=== PATIENT | male | born 1955 | race Caucasian/White ===

== ENCOUNTER 2019-07-28 17:51 | Observation (INO) ==
[2019-07-28] MEDS ORDERED: ASPIRIN PO ONE (18:07)
--- NOTE | 2019-07-28 18:29 | Diag Imaging Result Doc PS360 ---
CHEST-2 VIEWS - 07/28/2019 INDICATION: Near Syncope COMPARISON: 10/26/2012 FINDINGS: The lungs are normally expanded and clear. Heart size and mediastinal contours are normal. No pneumothorax or pleural effusion. IMPRESSION: Negative exam. Electronically signed by Chaz Howe 07/28/2019 6:27 PM
--- NOTE | 2019-07-28 19:12 | PROVIDER DOCUMENTATION ---
HPI-General Adult - General Chief Complaint: Near Syncope Stated Complaint: DIZZY Time Seen by Provider: 07/28/19 18:43 Source: patient, family Allergies/Adverse Reactions: Patient Allergies Allergy/AdvReac Type Severity Reaction Status Date / Time No Known Allergies Allergy Verified 07/28/19 20:02 Home Medications: Home Medication List Medication Instructions Recorded Confirmed Last Taken Type Alfuzosin E.r. [Uroxatral] 1 tab PO DAILY 07/28/19 07/28/19 Unknown History Bisoprolol [Zebeta] 5 mg PO DAILY 07/28/19 07/28/19 07/28/19 History Oxybutynin Chloride [Oxybutynin 1 tab PO DAILY 07/28/19 07/28/19 07/28/19 History Chloride ER] Potassium 1 tab PO DAILY 07/28/19 07/28/19 07/28/19 History - History of Present Illness -Gen Adult Nature of Presenting Problems: 63yo male presents with CC of dizziness. The onset was 3:30pm. The patient reports that the symptoms started suddenly and he felt warm. The patient denies chest pain, SOB, or any speech issues. The patient did have have upper back pain last and some shortness of breath. The patient did not pass out, but he did have some difficulty walking. The patient denies focal weakness, but does report some generalized LE weakness and pain. The patient denies cough or fever. The symptoms last approximately 30min. Review of Systems - Adult - REVIEW OF SYSTEMS - ADULT Constitutional: reports: no symptoms reported. denies: fever Eyes: reports: no symptoms reported. denies: blurred vision Ears, Nose, Mouth & Throat: reports: no symptoms reported. denies: throat pain Cardiovascular: reports: no symptoms reported. denies: chest pain Respiratory: reports: no symptoms reported. denies: shortness of breath Gastrointestinal: reports: no symptoms reported. denies: abdominal pain Genitourinary: reports: no symptoms reported. denies: flank pain Musculoskeletal: reports: back pain Integumentary: reports: no symptoms reported Neurological: reports: ataxia, loss of balance. denies: slurred speech Psychiatric: reports: no symptoms reported Endocrine: reports: no symptoms reported Hematologic/Lymphatic: reports: no symptoms reported Allergic/Immunologic: reports: no symptoms reported Past History - Adult - PAST MEDICAL HISTORY-ADULT Review of Records: reports: Old Records Reviewed Cardiovascular: reports: HTN Respiratory: reports: denies history Gastrointestinal: reports: denies history Genitourinary: reports: denies history Musculoskeletal: reports: denies history Neurological: reports: denies history. denies: CVA Psychiatric: reports: denies history Endocrine/Immune: reports: denies history - FAMILY HISTORY Family History: other (CAD) - SOCIAL HISTORY Smoking: other (Former smoker) Substance Use: none/never Alcohol Use Frequency: never Physical Exam-General - PHYSICAL EXAM-ADULT Initial Vital Signs Reviewed: Yes - CONSTITUTIONAL General Appearance: appears well, alert, no apparent distress - EYES Eyes: PERRL/EOMI. negative: conjuctival exudate, EOM palsy, photophobia, scleral icterus - HEAD, EARS, NOSE, MOUTH & THROAT HENMT: normocephalic/atraumatic, moist mucous membranes, pharynx normal - NECK Neck: non-tender - RESPIRATORY Respiratory: lungs clear, normal breath sounds - CARDIOVASCULAR Cardiovascular: regular rate, rhythm. negative: no edema (Trace LE edema) - GASTROINTESTINAL (ABDOMEN) Abdominal Exam: non tender, soft - SKIN Integumentary: normal color, warm/dry - NEUROLOGIC Neurologic: camp nurse II-XII nml as tested, other (normal finger to nose and heel to chen testing). negative: no motor/sensory deficits, abnormal cerebellar tests, abnormal camp nurse II-XII, aphasia, motor weakness, sensory deficit - PSYCHIATRIC Psych/Mental Status: normal mood/affect, normal thought content, normal thought process Progress - PLAN OF CARE/RESULTS Progress/Plan/Lab Results: Vital Signs - 8 hr 07/28/19 17:57 Temperature 97.9 F Pulse Rate 58 L Respiratory Rate 19 Blood Pressure 157/97 O2 Sat by Pulse Oximetry 96 Orders Category Date Time Status Cardiac Monitoring DIRECTED Care 07/28/19 18:08 Active Oxygen Therapy- ED Nursing DIRECTED Care 07/28/19 18:08 Active Saline Loc NOW Care 07/28/19 18:08 Active CHEST-2 VIEWS [RAD] Stat Exams 07/28/19 18:[address] HEAD W/O CONTRAST [CT] Stat Exams 07/28/19 19:09 Ordered CBC WITH ELECTRONIC DIFF [HEME] Stat Lab 07/28/19 19:03 Ordered CK PROFILE [SP CHEM] Stat Lab 07/28/19 19:03 Ordered COMPREHENSIVE METABOLIC PANEL [CHEM] Stat Lab 07/28/19 19:03 Ordered PRO B-NATRIURETIC PEPTIDE Stat Lab 07/28/19 19:03 Ordered PROTIME WITH INR [COAG] Stat Lab 07/28/19 19:03 Ordered PTT [COAG] Stat Lab 07/28/19 19:03 Ordered TROPONIN T Stat Lab 07/28/19 19:03 Ordered Aspirin Med 07/28/19 18:07 Discontinued 325 mg PO NOW ONE CP/SOB/Palp >45 yrs of Age Stat Oth 07/28/19 18:07 Ordered EKG [EKG] Stat Ther 07/28/19 18:08 Ordered Result Diagrams: 07/28/19 19:02 07/28/19 19:02 - REASSESSMENT Reassessment #1 Status: improving (Given bradycardia and symptoms will admit for symptomatic bradycardia and observation. Discussed with the hospitalist team who has accepted the patient.) Departure - Departure Date of Disposition Decision: 07/28/19 Time of Disposition Decision: 20:24 DIAGNOSIS: Symptomatic bradycardia Disposition: ADMITTED INPATIENT 09 Certified Medical Emergency: Emergent Condition: Fair Referrals and Follow-Ups: Tony Rock MD [Primary Care Provider] - - Critical Care Note This patient required my direct & personal management of CC.: No Attestation - Physician/ TONY Attestation Patient care was provided by Advanced Practice Provider:: No The physician spent face to face time with patient:: Yes Advanced Practice Provider documentation review:: Supervising physician onsite and consulted in the evaluation and care of this patient. The physician did have a face to face encounter with the patient.
[2019-07-28 19:19] LABS: BASO# 0.03 X1000 (0.0-0.2); BASO% 0.3 % (0.0-0.8); EOS# 0.39 X1000 (0.0-0.7); EOS% 4.3 % (0.0-10.0); HEMATOCRIT 41.6 % (42.0-52.0); HEMOGLOBIN 13.9 g/dL (14.0-18.0); LYMPH# 2.23 X1000 (1.2-3.4); LYMPH% 24.3 % (20.5-51.1); MCH 28.7 PG (27-31); MCHC 33.4 g/dL (33-37); MONO# 0.92 X1000 (0.11-0.59); MPV 10.3 FL (7.4-10.4); NEUT# 5.59 X1000 (1.4-6.5); NEUT% 61.1 % (42.2-75.2); PLT 156 X1000 (130-400); RBC 4.84 XMIL (4.7-6.1); WBC 9.16 X1000 (4.8-10.8)
[2019-07-28 19:21] LABS: INR 1.14; PROTIME 14.8 Seconds (11.0-16.0)
[2019-07-28 19:22] LABS: PTT 29.5 Seconds (22.3-41.8)
--- NOTE | 2019-07-28 19:34 | Diag Imaging Result Doc PS360 ---
CT HEAD W/O CONTRAST - 07/28/2019 INDICATION: Dizziness COMPARISON: 08/25/2013 FINDINGS: The ventricles and sulci are normal in size and contour. No intracranial mass or hemorrhage. The skull is intact. The sinuses mastoids and middle ears are clear. IMPRESSION: Negative exam. This exam was performed using automated exposure control, adjustment of mA or kV according to patient size, and/or use of iterative reconstruction technique Electronically signed by Chaz Howe 07/28/2019 7:31 PM
[2019-07-28 19:38] LABS: AGAP 11; ALB/GLOB RATIO 1.9; ALKALINE PHOSPHATASE 80 U/L (32-122); BUN 16 mg/dL (8-22); CHLORIDE 104 mmol/L (98-107); CK PROFILE 149 U/L (24-204); COSMO 279; CREATININE 0.8 mg/dL (0.7-1.2); ESTIMATED GFR > 60; GLUCOSE 137 mg/dL (70-104); GOT 25 U/L (10-34); GPT 30 U/L (10-44); POTASSIUM 3.7 mmol/L (3.5-5.1); SODIUM 138 mmol/L (136-145); TCO2 23 mmol/L (25-35); TOTAL BILIRUBIN 0.33 mg/dL (0.20-1.00); TOTAL PROTEIN 6.1 g/dL (6.3-8.3)
--- NOTE | 2019-07-28 19:47 | EKG Report ---
Test Performed on : 07/28/2019 6:52:09 PM Test Reason : Near Syncope Blood Pressure : / mmHG Vent. Rate : 055 BPM Atrial Rate : 055 BPM P-R Int : 182 ms QRS Dur : 092 ms QT Int : 426 ms P-R-T Axes : 044 -06 -01 degrees QTc Int : 407 ms Sinus bradycardia. Otherwise normal ECG No previous ECGs available Unconfirmed Result
[2019-07-28] MEDS ORDERED: ZOFRAN IV PRN (21:11)
[2019-07-28] MEDS: NS 1,000 ML IV SCH (23:55)
[2019-07-28] MEDS: TYLENOL PO PRN (23:57)
--- NOTE | 2019-07-29 00:41 | HISTORY AND PHYSICAL ---
CHIEF COMPLAINT: Syncope. HISTORY OF PRESENT ILLNESS: The patient is a very pleasant 63-year-old male who notes he has had dizziness off and on, but never anything this severe. States that he does not drink enough and he notes that he stays dehydrated. He has been working heavily over the past couple of weeks, 12-16 hour days. He was at work today when he became lightheaded, dizzy, felt faint, knew that he needed to sit down. He was able to call his boss. Upon his boss' arrival to get him, which was just few minutes later, Mr. Healy notes that he was somewhat disoriented. He was unable to figure out where to grab the hand rail. He also states that he had called someone else, but he could not figure out how to talk to them. Denied any focal weakness. Notes that the confusion quickly relieved itself. Notes that a couple days ago he did have some upper back pain, but this went away. Notes he did not pass out, did not have any focal weakness, but states he was just generally weak. Noted the symptoms lasted approximately 30 to 40 minutes. ALLERGIES: No known drug allergies. MEDICATIONS: Uroxatral, Zebeta 5 mg daily, oxybutynin ER 1 tablet daily, potassium. PAST MEDICAL HISTORY: Significant for hypertension, BPH, overactive bladder with frequent urinary incontinence and this is the reason he states he does not drink well. FAMILY HISTORY: Positive for coronary artery disease. SOCIAL HISTORY: He is a former smoker, but has not smoked in several years. Denies alcohol or illicit substances. He is currently employed, works greater than 40 hours a week. REVIEW OF SYSTEMS: As noted above. Denies any headaches, blurred vision. Denies any change in his vision except during the episode of dizziness. Denies any difficulty walking, talking or thinking except during this single episode of dizziness. All this seems to have cleared up at the moment. Denies any dysuria, but does note that he has urinary frequency. Denies constipation, melena, hematochezia. Denies chest pain, palpitations, shortness of breath, cough, congestion or other upper respiratory type symptoms. Does have frequent swelling in his lower extremities, but this has not really changed. PHYSICAL EXAMINATION: VITAL SIGNS: Reviewed. Temperature 97.9 degrees, pulse 58, respiratory 19, BP 157/97, saturating 96% on room air. GENERAL: Patient is very pleasant. He is in no current respiratory distress. He is sitting in the bed with the head elevated. He is awake, alert, oriented. He denies any dizziness currently. HEENT: Normocephalic. NECK: Supple. CARDIOVASCULAR: Bradycardia. No current murmurs. CHEST: Clear and nonlabored. No wheezing. ABDOMEN: Soft, nondistended, nontender. EXTREMITIES: Moves all extremities. NEUROLOGIC: No focal neurological changes. LABORATORIES: CBC, CMP effectively normal with a glucose at 137. ASSESSMENT: 1. Bradycardia. 2. Syncope. 3. Hypertension. 4. Dizziness. 5. Volume depletion. PLAN: Going to admit patient to the hospital, place him on IV fluids, telemetry, recheck his labs in the a.m. and we will follow. Discussed with patient the importance of staying well hydrated as well as taking breaks at work when necessary. He certainly should consider following up outpatient with Urology regarding his urinary incontinence issues. cc: MD Tony Guidry MD
[2019-07-29] MEDS: NS 1,000 ML IV SCH ×2 (06:08→10:54)
[2019-07-29 08:14] LABS: HEMATOCRIT 41.5 % (42.0-52.0); HEMOGLOBIN 13.9 g/dL (14.0-18.0); MCH 29.6 PG (27-31); MCHC 33.5 g/dL (33-37); MCV 88.3 FL (81-99); MPV 10.7 FL (7.4-10.4); RBC 4.7 XMIL (4.7-6.1); RDW 13.4 % (11.5-14.5); WBC 8.17 X1000 (4.8-10.8)
[2019-07-29 08:45] LABS: AGAP 10; ALKALINE PHOSPHATASE 75 U/L (32-122); BUN 12 mg/dL (8-22); CALCIUM 8.4 mg/dL (8.8-10.2); CHLORIDE 105 mmol/L (98-107); COSMO 282; CREATININE 0.9 mg/dL (0.7-1.2); ESTIMATED GFR > 60; GLUCOSE 117 mg/dL (70-104); GOT 26 U/L (10-34); GPT 29 U/L (10-44); POTASSIUM 3.6 mmol/L (3.5-5.1); SODIUM 141 mmol/L (136-145); TCO2 26 mmol/L (25-35); TOTAL BILIRUBIN 0.92 mg/dL (0.20-1.00)
--- NOTE | 2019-07-29 09:47 | PROGRESS NOTE ---
DATE: 07/29/2019 SUBJECTIVE: The patient is stable. He had a period of pronounced disorientation, says he has been working 12-16 hours a day walking vigorously, not been drinking a great deal. He has been on longstanding Zebeta and he has been found so far to have some bradycardia in the 40s. Denies chest pains. OBJECTIVE: Vital signs: Afebrile, pulse 48, respirations 18, blood pressure 153/95, O2 saturation room air 96. CV: Bradycardia, regular rhythm. No murmur. Lungs: CTA. Abdomen: Nontender, nondistended. Extremities: No calf tenderness, cords, or edema. Neurologic: Cranial nerves II through XII are intact. He is alert and oriented x3. Moves all extremities well. Follows commands. No focal deficits. LABORATORY DATA: Reviewed from yesterday on admission shows CMP normal. ProBNP 31. Troponin less than 0.01. This morning, white count is 8.17, hemoglobin 13.9, platelets 143. PT/PTT normal. CT scan of the head done yesterday negative. Chest x-ray negative. EKG shows sinus bradycardia, otherwise normal. ASSESSMENT: 1. Confusion/presyncope possibly related to number 2. 2. Bradycardia. 3. Hypertension. 4. Volume depletion. 5. Dizziness possibly related to volume depletion. 6. Benign prostatic hypertrophy. 7. Overactive bladder. PLAN: Hold the patient's medications, leave him off his beta-kelly/Zebeta particularly. Will place him on low-dose Diovan. Will check echocardiogram as ordered by Dr. Steward on admission and will decrease IV hydration slightly, ambulate the patient, possibly consider carotid Doppler as outpatient. If he does well possibly discharge home tomorrow off the Zebeta and on the Diovan. cc: Tony Rock MD
[2019-07-29] MEDS: DIOVAN PO SCH (10:55)
--- NOTE | 2019-07-29 13:04 | ECHO REPORT ---
ORDER DATE: 07/29/2019 INTERPRETING PHYSICIAN: Rudy Sullivan MD. ECHOCARDIOGRAPHIC MEASUREMENTS: 1. Interventricular septum 1.0. 2. Left ventricular posterior wall 0.9. 3. Diastolic diameter 5.7. 4. Left atrium 3.8. 5. Aorta 3.5. FINDINGS: 1. Mitral valve was normal. 2. Tricuspid valve was normal. 3. Aortic valve leaflets were trileaflet. There is mild tricuspid regurgitation. Peak velocity across the tricuspid valve was 2.8 m/sec. 4. Peak velocity across the aortic valve less than 2 m/sec by Doppler studies. There is no aortic stenosis or regurgitation. There is mild mitral regurgitation. 5. Normal left ventricular cavity size. Estimated ejection fraction of 60 to 65 percent. 6. There is no pericardial effusion or obvious intracardiac mass or thrombus. cc: MD Delroy Person MD Stephen W. Harbin, MD
[2019-07-30] MEDS: NS 1,000 ML IV SCH ×2 (03:50→06:42)
[2019-07-30] MEDS: TYLENOL PO PRN (06:42)
[2019-07-30 07:16] LABS: BASO# 0.04 X1000 (0.0-0.2); BASO% 0.4 % (0.0-0.8); EOS# 0.51 X1000 (0.0-0.7); EOS% 5.2 % (0.0-10.0); HEMATOCRIT 42.9 % (42.0-52.0); HEMOGLOBIN 14.6 g/dL (14.0-18.0); LYMPH# 2.31 X1000 (1.2-3.4); LYMPH% 23.4 % (20.5-51.1); MCH 29.4 PG (27-31); MCV 86.5 FL (81-99); MONO# 0.94 X1000 (0.11-0.59); MONO% 9.5 % (1.7-9.3); MPV 10.6 FL (7.4-10.4); NEUT# 6.09 X1000 (1.4-6.5); NEUT% 61.5 % (42.2-75.2); PLT 161 X1000 (130-400); RBC 4.96 XMIL (4.7-6.1); RDW 13.2 % (11.5-14.5); WBC 9.89 X1000 (4.8-10.8)
[2019-07-30 07:45] LABS: AGAP 13; BUN 9 mg/dL (8-22); CALCIUM 8.4 mg/dL (8.8-10.2); CHLORIDE 107 mmol/L (98-107); COSMO 284; CREATININE 0.8 mg/dL (0.7-1.2); ESTIMATED GFR > 60; GLUCOSE 106 mg/dL (70-104); POTASSIUM 3.9 mmol/L (3.5-5.1); SODIUM 143 mmol/L (136-145); TCO2 23 mmol/L (25-35)
[2019-07-30] MEDS: DIOVAN PO SCH (08:13)
[2019-07-30 11:57] VITALS: BP 157/96
--- NOTE | 2019-07-30 15:23 | DISCHARGE SUMMARY ---
ADMISSION DATE: 07/28/2019 DISCHARGE DATE: 07/30/2019 DIAGNOSES: 1. Confusional/presyncope, possibly related to #2. 2. Bradycardia. 3. Hypertension. 4. Volume depletion. 5. Dizziness, thought related to volume depletion. 6. BPH. 7. Overactive bladder. PROCEDURES: 1. Chest x-ray done on admission, negative exam. 2. CT head done on admission without contrast revealing negative exam. 3. Echocardiogram, mild MR, otherwise negative. REASON FOR ADMISSION AND HOSPITAL COURSE: The patient is a 63-year-old white male followed in my medical practice. He had prominent confusion, lightheadedness, dizziness, and felt faint. He was at work. He has been under a lot of stress as he has been working 12 to 16 hour days. He was brought in for evaluation. There were no focal deficits. CT negative. Confusion cleared and dizziness improved. He did receive some IV fluids and his Zebeta was stopped and his heart rate went from the mid 40s up into the 59 range. He was able to ambulate in the room without difficulty. Blood pressure apolinar some, but that is likely related to coming off the beta kelly to some extent as well. He had echocardiogram, CT head, chest x-ray which were negative. We plan outpatient carotid Doppler studies. He is feeling well. No dizziness. Ambulating without difficulty and will be discharged home to follow up in my office in 10 days. We will schedule outpatient carotid Doppler studies in the next 5 days through the office. DISCHARGE MEDICATIONS: Will be Uroxatral 10 mg p.o. daily, Diovan 160 mg p.o. daily, oxybutynin ER 15 mg p.o. daily, potassium OTC 99 mg p.o. daily. LAB DATA: Showed normal CMP during the hospitalization with a proBNP of 31. Troponin less than 0.01. TSH 2.69. White count normal at 9, hemoglobin 13.9, platelets 156,000. PT/PTT normal. cc: Tony Rock MD
== END 2019-07-30 12:50 | disposition home or self-care (01) ==
LOC: ED 17:51 → SUATTDRO 21:30 → INTOOBSV 21:30 → 3N 21:30
PROVIDERS: ADMIT Family Medicine; ATTEND Family Medicine